=== PATIENT | female | born 2000 | race Caucasian/White ===

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

== ENCOUNTER 2023-05-28 10:15 | Emergency (ER) | payer BC, SELFPAY ==
[2023-05-28 10:16] VITALS: BP 133/105; PULSE 93; RESP 18; TEMP 36.6; O2SAT 96; BMI 16.9
--- NOTE | 2023-05-28 10:43 | EX.ED.UPPERE ---
HPI History of Present Illness Chief Complaint: Laceration Informant: patient Narrative Narrative: Healthy 22-year-old female accidentally cut herself in the left thumb, she was in sculpture class and she was using a wood cutting tool and ran across the piece of wood which then came across her body and into her left thumb sustaining a laceration on top of it. She denies any loss of function or major pain, just some soreness and blood that she is more concerned about. [id number]. Tetanus Immunization: 5-10 years [facility] Medical History Depression Home Medications sertraline 100 mg tablet (Zoloft) 100 mg PO DAILY 05/28/23 [History Last Taken Unknown] Allergy/AdvReac Type Severity Reaction Status Date / Time Penicillins Allergy Unknown PT UNSURE Verified 05/28/23 10:15 OF REACTION Social History Smoking Status: Never smoker ROS ROS ED Constitutional Constitutional ED: Denies chills or fever(s) Musculoskeletal Musculoskeletal: Reports extremity pain; Denies neck pain Integumentary Reports laceration; Denies Abrasions, rash or wounds Neurologic Neurologic: Denies paresthesias or weakness EXAM Physical Exam Const Vital Signs: 05/28/23 10:16 Temperature 97.8 F Temperature Source Temporal Pulse Rate 93 Respiratory Rate 18 Blood Pressure 133/105 H Blood Pressure Mean 114 Pulse Ox 96 Oxygen Delivery Method Room Air Positive well nourished and well developed General Appearance ED: well developed and NAD Neck full ROM and supple Back/Spine normal ROM and normal to inspection Extremity full ROM Extremity Narrative: L thumb: FROM, dorsal laceration, traverses IPJ, full-thickness, but does not appear deep. no nail injury. Neuro oriented x3, no focal motor deficits and no sensory deficits noted Sensorium / Orientation: alert Psych mental status grossly normal and thought process normal Skin no wounds Skin Narrative: full thickness mostly linear clean-appearing laceration dorsal L thumb 3cm, across IPJ. At one end there is a sort of U-shaped pad and at the other end of the laceration there is sort of a V shape but most of the laceration is linear. Rashes: no rashes MDM MDM MDM Narrative Medical decision making narrative: Laceration was repaired this appears to be simply a skin injury, extensor navarro is intact, there was some brisk bleeding as the laceration approached the ulnar aspect of the distal left thumb where the neurovascular bundle is, it was not pulsatile, I was able to obtain good hemostasis after the repair and holding pressure. Dressed with bacitracin, given appropriate discharge instructions regarding removal and care, she does not need a tetanus update at this time. Procedures Lacerations L thumb: Length: 3 cm Depth: Sub Q Shape: irreg Prep: Sterile Conditions and Chlorhexadine Laceration repair: Irrigated, Lidocaine (2.5cc), Lidocaine with epi (topical LET), Local and Skin sutures Irrigated (ml): 120 Number of Sutures/[place]: 8 Suture Information: Ethilon, Simple and 4-0 Discharge Plan Triage Chief Complaint: Laceration ED Provider: Alireza Sotelo Dx/Rx/DC Orders Clinical Impression: Laceration of left thumb Instructions: ED Laceration, Hand: All Closures Prescriptions: No Action sertraline [Zoloft] 100 mg tablet 100 mg PO DAILY Primary Care Provider: Care Physician,No Primary Referrals: [facility] [Group of Physicians] - 10-14 Days suture removal NOT,DEFINED [Non-Staff] - Disposition Disposition: Home, Self Care
[2023-05-28] MEDS: Lidocaine/Epi/Tetracaine 50 ML 1 APPLIC TOPICAL (10:57)
[2023-05-28] MEDS: Lidocaine 1% (20 ml mdv) 20 ML Vial INFILT (10:57)
== END 2023-05-28 12:30 | disposition home or self-care (01) ==
PROVIDERS: Emergency Provider Emergency Medicine; PCP Family Medicine; Visit Provider Emergency Medicine
DX: S61.012A Laceration without foreign body of left thumb without damage to nail, initial encounter (principal); W26.8XXA Contact with other sharp object(s), not elsewhere classified, initial encounter; Y93.89 Activity, other specified; F32.A Depression, unspecified
CPT/HCPCS: 12002; 99282